=== PATIENT | male | born 1970 | race Caucasian/White ===

== ENCOUNTER 2025-04-06 04:14 | Emergency (ER) | payer OTHER ==
[~2025-04-06] VITALS: Ht 165.1 cm; Wt 82.0 kg
[2025-04-06] MEDS: MORPHINE SULFATE 4 MG/ML INJ (FOR IV/IM USE) IV ONE ×2 (04:59→07:02)
[2025-04-06] MEDS: ONDANSETRON HCL 4MG/2ML INJ IV ONE (05:00)
[2025-04-06 05:23] LABS: BASOPHILS % 1.1 % (0.0-2.0); EOSINOPHILS % 2.1 % (0.0-5.0); HEMATOCRIT. 37.1 % (42.0-52.0); HEMOGLOBIN. 12.8 g/dL (14.0-18.0); LYMPHOCYTES % 22.4 % (20.0-50.0); MEAN PLATELET VOLUME 8.8 fl (7.4-10.4); MONOCYTES % 8.7 % (2.0-8.0); NEUTROPHILS % 65.7 % (40.0-76.0); PLATELET 256 x1000/uL (130-400); RED BLOOD CELL COUNT 4.35 mill/uL (4.7-6.1); RED CELL DISTRIBUTION WIDTH 13.7 % (11.6-14.6)
[2025-04-06 05:25] LABS: CREATININE 0.8 mg/dL (0.6-1.3)
[2025-04-06 05:26] LABS: ETHANOL BLOOD < 10 mg/dL (<10); UREA NITROGEN BLOOD 12 mg/dL (9-23)
[2025-04-06] MEDS: ACETAMINOPHEN 1000MG/100ML 100 ML IV ONE (05:43)
[2025-04-06] MEDS: SODIUM CHLORIDE 0.9% 1,000 ML IV ONE (07:02)
[2025-04-06] MEDS: PROPOFOL 200MG/20ML VIAL IV PRN (07:27)
[2025-04-06] MEDS: FENTANYL CITRATE/PF 50MCG/ML 2ML VIAL IV ONE (07:27)
[2025-04-06 10:14] VITALS: TEMP 36.7; O2SAT 99
[2025-04-06 10:17] VITALS: BP 131/92; PULSE 79; RESP 14; TEMP 98.6; O2SAT 100
== END 2025-04-06 10:36 | disposition short-term general hospital (02) ==
LOC: ER 04:35 → EDBD 04:35 → ER 10:36 → CANBEDREQ 10:48
DX: S82.042A Displaced comminuted fracture of left patella, initial encounter for closed fracture (principal); S82.832A Other fracture of upper and lower end of left fibula, initial encounter for closed fracture; Z79.899 Other long term (current) drug therapy; V17.4XXA Pedal cycle driver injured in collision with fixed or stationary object in traffic accident, initial encounter; Y93.55 Activity, bike riding; Y92.89 Other specified places as the place of occurrence of the external cause; Y99.8 Other external cause status
CPT/HCPCS: 80048; 80320; 85025; 36415; 73552; 73560; 73590; 93005; 99285; J3010; J2405; J2704; J2270; J7030; Z7610 ×5; A4606; G0480; J0131